=== PATIENT | male | born 1975 | race Caucasian/White ===

== ENCOUNTER 2021-05-21 23:15 | Emergency (ER) | payer SELFPAY ==
[~2021-05-21] VITALS: Ht 185.4 cm; Wt 104.4 kg
--- NOTE | 2021-05-21 23:30 | NUR ---
PT BIB [facility] S/P SEIZURE. PER PARAMEDICS PT'S FRIEND CALLED 911, PT HAD ANOTHER SEIZURE WHILE PARAMEDICS WERE ON SCENE, VERSED 5 MG IM ADMINISTERED. PT NOTED TO BE POSTICTAL UPON ARRIVAL. NO SOB OR LABORED BREATHING, AFEBRILE.
--- NOTE | 2021-05-21 23:35 | NUR ---
DR. CHACKO AT BEDSIDE, MSE IN PROGRESS.
[2021-05-22] MEDS ORDERED: levETIRAcetam IV 1,000 MG in IV DEXTROSE 5% 100 ML IV ONE
--- NOTE | 2021-05-22 | NUR ---
PT REFUSED XRAY AND BRAIN CT, DR. CHACKO MADE AWARE.
[2021-05-22 00:13] LABS: HEMATOCRIT 45.1 % (36.7-47.1); MEAN CORPUSCULAR HEMOGLOBIN 30.7 uug (23.8-33.4); MEAN CORPUSCULAR VOLUME 89.5 fL (73.0-96.2); PLATELET COUNT (AUTO) 177 K/uL (152-348)
[2021-05-22] MEDS ORDERED: levETIRAcetam 500 MG/5 ML VIAL IV ONE (00:15)
[2021-05-22 00:19] LABS: CREATININE 1.4 mg/dL (0.6-1.3); POTASSIUM 3.8 mmol/L (3.5-5.1)
[2021-05-22 00:25] LABS: BILIRUBIN,TOTAL 0.3 mg/dL (0.2-1.0); TOTAL PROTEIN, SERUM 7.5 g/dL (6.4-8.2)
[2021-05-22] MEDS ORDERED: MISCELLANEOUS MED PO ONE (00:30)
--- NOTE | 2021-05-22 00:34 | NUR ---
VIMPAT 200 MG ADMINISTRED PO, WELL TOLERATED.
[2021-05-22] MEDS ORDERED: LACOSAMIDE 50 MG TABLET ONE (00:39)
--- NOTE | 2021-05-22 01:47 | NUR ---
Patient does not wish to proceed with medical care recommended by Dr. Chanel. Patient given information related to possible complications, up to and including , which could occur as a result of leaving the hospital at this time. Patient verbalizes understanding of risks involved due to leaving against medical advice. Patient has signed AMA form. Denies any pain/discomfort. No n/v/d. No SOMMERS/dizziness. Steady gait. Picked up by brother.
[2021-05-22 01:51] VITALS: BP 120/64
== END 2021-05-22 01:50 | disposition left against medical advice (07) ==
LOC: ER 23:15
DX: G40.909 Epilepsy, unspecified, not intractable, without status epilepticus (principal)
CPT/HCPCS: 36415; 85025; 93005; A4663; J1953; J7060